=== PATIENT | female | born 1980 | race Two or more races ===

== ENCOUNTER 2023-05-02 11:21 | Outpatient (RCR) | payer OTHER, SELFPAY | END 2023-05-02 23:59 | disposition home or self-care (01) | LOC: RPT 11:21 | PROVIDERS: ATTENDING PHYSICIAN Family Medicine | DX: M54.42 Lumbago with sciatica, left side (principal); Z73.6 Limitation of activities due to disability | CPT/HCPCS: 97110; 97162; 97535 ==

== ENCOUNTER 2023-05-30 17:26 | Outpatient (RCR) | payer OTHER, SELFPAY | END 2023-05-30 23:59 | disposition home or self-care (01) | LOC: RPT 17:26 | PROVIDERS: ATTENDING PHYSICIAN Family Medicine | DX: M54.42 Lumbago with sciatica, left side (principal); Z73.6 Limitation of activities due to disability | CPT/HCPCS: 97010; 97110; 97112; 97535 ==

== ENCOUNTER 2023-06-13 18:00 | Outpatient (RCR) | payer OTHER, SELFPAY | END 2023-06-13 23:59 | disposition home or self-care (01) | LOC: RPT 18:00 | PROVIDERS: ATTENDING PHYSICIAN Family Medicine | DX: M54.42 Lumbago with sciatica, left side (principal); Z73.6 Limitation of activities due to disability | CPT/HCPCS: 97010; 97110; 97112 ==

== ENCOUNTER 2023-07-04 18:24 | Outpatient (RCR) | payer OTHER, SELFPAY | END 2023-07-31 07:56 | disposition home or self-care (01) | LOC: RPT 18:24 | PROVIDERS: ATTENDING PHYSICIAN Family Medicine | DX: M54.42 Lumbago with sciatica, left side (principal); Z73.6 Limitation of activities due to disability | CPT/HCPCS: 97010; 97110 ==

== ENCOUNTER → 2023-07-16 06:54 | Outpatient (REF) | payer OTHER, SELFPAY | LOC: PAVMRI 06:54 | PROVIDERS: ATTENDING PHYSICIAN Family Medicine | DX: M54.42 Lumbago with sciatica, left side (principal); M51.36 Other intervertebral disc degeneration, lumbar region | CPT/HCPCS: 72148 ==

== ENCOUNTER → 2024-09-21 09:00 | Outpatient (REF) | payer OTHER, SELFPAY | LOC: RCS 09:00 | PROVIDERS: ATTENDING PHYSICIAN Family Medicine | DX: R00.2 Palpitations (principal) | CPT/HCPCS: 93225; 93226 ==

== ENCOUNTER → 2024-10-20 09:32 | Outpatient (REF) | payer OTHER, SELFPAY | LOC: RAD 09:32 | PROVIDERS: ATTENDING PHYSICIAN Family Medicine | DX: M54.9 Dorsalgia, unspecified (principal); R31.29 Other microscopic hematuria | CPT/HCPCS: 76770 ==

== ENCOUNTER → 2024-12-04 11:03 | Outpatient (REF) | payer OTHER, SELFPAY | LOC: RCS 11:03 | PROVIDERS: ATTENDING PHYSICIAN Internal Medicine; FAMILY PHYSICIAN Family Medicine | DX: I47.10 Supraventricular tachycardia, unspecified (principal) | CPT/HCPCS: 93306 ==

== ENCOUNTER → 2024-12-29 13:22 | Outpatient (REF) | payer OTHER, SELFPAY | LOC: RCS 13:22 | PROVIDERS: ATTENDING PHYSICIAN Internal Medicine; FAMILY PHYSICIAN Family Medicine | DX: I47.10 Supraventricular tachycardia, unspecified (principal) | CPT/HCPCS: 93017 ==

== ENCOUNTER 2025-02-08 04:15 | Emergency (ER) | payer OTHER, SELFPAY ==
[2025-02-08 04:19] VITALS: BP 112/60
[2025-02-08 05:12] LABS: HCG, Urine Qualitative Screen Negative
[2025-02-08] MEDS: TORADOL 30 MG IV (05:46)
[2025-02-08] MEDS: ZOFRAN 4 MG IV (05:47)
[2025-02-08 05:49] LABS: Urine Character Clear (Clear)
[2025-02-08] MEDS: NSS 1000 IV (05:54)
[2025-02-08 05:59] LABS: Urine Squamous Cell 0-2 /LPF (Few)
[2025-02-08 06:00] LABS: Urine Red Blood Cell 0-2 /HPF (0-2); Urine White Cell 0-2 /HPF (0-5)
[2025-02-08 06:06] LABS: Hematocrit 40.5 % (37.0-47.0); Hemoglobin 13.5 g/dL (12.0-16.0); Mean Corp Hgb Conc. 33.3 g/dL (33.0-37.0); Mean Corpuscular Volume 89.6 fL (81.0-99.0); Nucleated Red Blood Cells % 0 %; Platelet Count 182 10^3/uL (130-400); Red Cell Dist. Width 12.5 % (11.5-14.5)
--- NOTE | 2025-02-08 06:07 | ED.GENMED ---
History of Present Illness
<Mirza Tolbert MD, Resident - Last Filed: 02/08/25 07:41>
General
Chief Complaint: Abdominal Pain
Source: patient
Time Seen by Provider: 02/08/25 04:53
History of Present Illness
History of Present Illness:
Patient is a 44-year-old, primarily Burmese-speaking female who is here due to sharp pain in her right lower quadrant that started about an hour ago after she went to e
No issues with urination, no blood observed in the urine, no history of kidney stones, no history of ovarian cysts, last menstrual period January 16
Describes the pain as 9/10, intermittent, sharp in nature, which has been decreasing in intensity and is now 7/10, nonradiating, no aggravating or relieving factors
Normal appetite and bowel habits
Denies any abdominal pain, diarrhea, chest pain, shortness of breath, sweating, tiredness, lightheadedness or syncopal episodes
Past History
<Mirza Tolbert MD, Resident - Last Filed: 02/08/25 07:41>
Past History
ED Past Medical History: None
ED Past Surgical History: None
Social History
Tobacco: Non-smoker
Alcohol: Occasional
Living: with family
Review of Systems
<Mirza Tolbert MD, Resident - Last Filed: 02/08/25 07:41>
Review of Systems
All Other Systems: ROS reviewed and negative except as documented in HPI and ROS
Phy Exam
<Mirza Tolbert MD, Resident - Last Filed: 02/08/25 07:41>
General Physical Exam
General Presentation: well appearing and mild distress
General age: appears stated age
General Skin: warm and dry
General Habitus: normal
Cardiovascular Exam
Cardiovascular Exam: regular rate/rhythm, no edema, no gallop, no murmur and normal peripheral pulses
Pulmonary Exam
Pulmonary Exam: lungs clear and no respiratory distress
Gastrointestinal Exam
Gastrointestinal Exam: normal bowel sounds, soft and tender (In right and left lower quadrant)
Neurological Exam
Neurological Exam: alert and oriented x3
Musculoskeletal Exam
Musculoskeletal Exam: full ROM
Skin Exam
Skin Exam: normal color and warm/dry
Psychiatric Exam
Psychiatric Exam: normal mood/affect
Course
<Mirza Tolbert MD, Resident - Last Filed: 02/08/25 07:41>
Orders/Labs/Results
Orders:
Orders
02/08/25 04:55
Urinalysis Reflex To Culture Urgent
Date Specimen was Collected: 02/08/25
Time Specimen was Collected: 04:52
Urine Microscopic Reflex Cult Urgent
02/08/25 04:58
Test Result ONCE
02/08/25 04:59
HCG, Urine Qualitative Screen Urgent
Date Specimen was Collected: 02/08/25
Time Specimen was Collected: 04:58
02/08/25 05:22
US Pelvis W Transvag Combined Urgent
Comment:
Reason For Exam: right lower quadrant pain
02/08/25 05:23
0.9% Sodium Chloride 1000 ml [Nss] 1,000 ml IV BOLUS
02/08/25 05:24
Ketorolac [Toradol] 30 mg IV NOW ONE
Ondansetron Injectable [Zofran] 4 mg IV NOW ONE
US Kidneys and US Bladder [US Renal With Bladder] Urgent
Comment:
Reason For Exam: rlq pain
02/08/25 05:41
Comprehensive Metabolic Panel Urgent
02/08/25 05:55
Complete Blood Count/With Diff Urgent
02/08/25 09:22
CT Abd/pelvis W Iv Cont Urgent
Comment:
Reason For Exam: RLQ pain
Abnormal Lab Results
1202/08/25 02/08/25
04:55 05:41 05:55
MPV 10.6 H fL
(7.4-10.4)
Creatinine 0.5 L mg/dL
(0.6-1.0)
ALT 43 H U/L
(0-35)
Ur Occult Blood Reflex 1+ A
(Negative)
Urine Albumin (Reflex) 1+ A
(Neg - Trace)
02/08/25 05:55
02/08/25 05:41
Vital Signs
Initial and Last Documented VS:
Initial Vital Signs
Temp Pulse Resp BP Pulse Ox
98.0 F 84 16 112/60 98
02/08/25 04:19 02/08/25 04:19 02/08/25 04:19 02/08/25 04:19 02/08/25 04:19
Last Documented Vital Signs
Temp Pulse Resp BP Pulse Ox
97.9 F 69 18 105/47 98
02/08/25 08:00 02/08/25 08:00 02/08/25 08:00 02/08/25 08:00 02/08/25 08:00
<Chante Davidson, DO - Last Filed: 02/08/25 06:48>
Orders/Labs/Results
Orders:
Orders
02/08/25 04:55
Urinalysis Reflex To Culture Urgent
Date Specimen was Collected: 02/08/25
Time Specimen was Collected: 04:52
Urine Microscopic Reflex Cult Urgent
02/08/25 04:58
Test Result ONCE
02/08/25 04:59
HCG, Urine Qualitative Screen Urgent
Date Specimen was Collected: 02/08/25
Time Specimen was Collected: 04:58
02/08/25 05:22
US Pelvis W Transvag Combined Urgent
Comment:
Reason For Exam: right lower quadrant pain
02/08/25 05:23
0.9% Sodium Chloride 1000 ml [Nss] 1,000 ml IV BOLUS
02/08/25 05:24
Ketorolac [Toradol] 30 mg IV NOW ONE
Ondansetron Injectable [Zofran] 4 mg IV NOW ONE
US Kidneys and US Bladder [US Renal With Bladder] Urgent
Comment:
Reason For Exam: rlq pain
02/08/25 05:41
Comprehensive Metabolic Panel Urgent
02/08/25 05:55
Complete Blood Count/With Diff Urgent
02/08/25 09:22
CT Abd/pelvis W Iv Cont Urgent
Comment:
Reason For Exam: RLQ pain
Abnormal Lab Results
02/08/25 02/08/25 02/08/25
04:55 05:41 05:55
MPV 10.6 H fL
(7.4-10.4)
Creatinine 0.5 L mg/dL
(0.6-1.0)
ALT 43 H U/L
(0-35)
Ur Occult Blood Reflex 1+ A
(Negative)
Urine Albumin (Reflex) 1+ A
(Neg - Trace)
02/08/25 05:55
02/08/25 05:41
Vital Signs
Initial and Last Documented VS:
Initial Vital Signs
Temp Pulse Resp BP Pulse Ox
98.0 F 84 16 112/60 98
02/08/25 04:19 02/08/25 04:19 02/08/25 04:19 02/08/25 04:19 02/08/25 04:19
Last Documented Vital Signs
Temp Pulse Resp BP Pulse Ox
97.9 F 69 18 105/47 98
02/08/25 08:00 02/08/25 08:00 02/08/25 08:00 02/08/25 08:00 02/08/25 08:00
<Giulia Cardenas MD - Last Filed: 02/08/25 10:54>
Orders/Labs/Results
Orders:
Orders
02/08/25 04:55
Urinalysis Reflex To Culture Urgent
Date Specimen was Collected: 02/08/25
Time Specimen was Collected: 04:52
Urine Microscopic Reflex Cult Urgent
02/08/25 04:58
Test Result ONCE
02/08/25 04:59
HCG, Urine Qualitative Screen Urgent
Date Specimen was Collected: 02/08/25
Time Specimen was Collected: 04:58
02/08/25 05:22
US Pelvis W Transvag Combined Urgent
Comment:
Reason For Exam: right lower quadrant pain
02/08/25 05:23
0.9% Sodium Chloride 1000 ml [Nss] 1,000 ml IV BOLUS
02/08/25 05:24
Ketorolac [Toradol] 30 mg IV NOW ONE
Ondansetron Injectable [Zofran] 4 mg IV NOW ONE
US Kidneys and US Bladder [US Renal With Bladder] Urgent
Comment:
Reason For Exam: rlq pain
02/08/25 05:41
Comprehensive Metabolic Panel Urgent
02/08/25 05:55
Complete Blood Count/With Diff Urgent
02/08/25 09:22
CT Abd/pelvis W Iv Cont Urgent
Comment:
Reason For Exam: RLQ pain
Abnormal Lab Results
02/08/25 02/08/25 02/08/25
04:55 05:41 05:55
MPV 10.6 H fL
(7.4-10.4)
Creatinine 0.5 L mg/dL
(0.6-1.0)
ALT 43 H U/L
(0-35)
Ur Occult Blood Reflex 1+ A
(Negative)
Urine Albumin (Reflex) 1+ A
(Neg - Trace)
02/08/25 05:55
02/08/25 05:41
Vital Signs
Initial and Last Documented VS:
Initial Vital Signs
Temp Pulse Resp BP Pulse Ox
98.0 F 84 16 112/60 98
02/08/25 04:19 02/08/25 04:19 02/08/25 04:19 02/08/25 04:19 02/08/25 04:19
Last Documented Vital Signs
Temp Pulse Resp BP Pulse Ox
97.9 F 69 18 105/47 98
02/08/25 08:00 02/08/25 08:00 02/08/25 08:00 02/08/25 08:00 02/08/25 08:00
<Mirza Tolbert MD, Resident - Last Filed: 02/08/25 07:41>
MDM/Problems Addressed
Differential Diagnosis Includes:
Renal colic
Ovarian torsion
Appendicitis
Muscle sprain
Ectopic
MDM/Problems Addressed:
test negative, urine analysis negative for any UTI, test negative
Follow abdominal ultrasound for kidney and bladder and also pelvic ultrasound for any ovarian cyst
CBC shows normal blood counts liver and kidney function
Given the normal CBC, appendicitis less likely
<Mirza Tolbert MD, Resident - Last Filed: 02/08/25 07:41>
*Pulse Oximetry
SaO2: 98
Oxygen Mode of Delivery: Room air
Patient hypoxic: no
*Critical Care Note
Total Time (30-74mins, 75-104mins- exclusive of procedures): Not Applicable
<Giulia Cardenas MD - Last Filed: 02/08/25 10:54>
*Radiology
Radiology exam reviewed: radiology read reviewed
<Giulia Cardenas MD - Last Filed: 02/08/25 10:54>
Update Note
Update Note:
9:20 AM patient's ultrasound of her bladder, kidneys and pelvis showed no acute abnormality. Patient is still having moderate pain that is in the right lower quadrant. Therefore, decision made to assess patient's right lower quadrant pain with CAT
scan.
10:54 AM patient appears well. CT report reviewed with patient
ED Attending Note
<Mirza Tolbert MD, Resident - Last Filed: 02/08/25 07:41>
-
Portions of this chart may have been created with voice recognition software.� Occasional wrong word or��sound alike� substitutions may have occurred due to the inherent limitations of voice recognition software.
<Chante Davidson DO - Last Filed: 02/08/25 06:48>
ED Attending Note
Patient seen and examined by attending physician: Yes
I performed a history and physical exam of patient and discussed management with resident, I reviewed resident's note and agree with documented findings and plan of care.: Yes
ED Attending Note:
This is a primarily [place]mese-speaking woman with no significant past medical history who presents with abrupt onset of moderate to severe right pelvic pain that began shortly after urinating and then going back to bed. No history of similar episodes
of pain. She mitts to nausea without vomiting. No dysuria urgency or hematuria. No back pain or flank pain. No fevers or chills. No chest pain or cough no shortness of breath.
Last menstrual period normal and on time January 16, 2025. She denies vaginal discharge nor bleeding.
44-year-old woman appears her stated age, awake and alert, pleasant, appears in no acute distress.
Abdomen is soft, nondistended, mild tenderness right pelvic region. No rebound or guarding. No palpable masses. No CVA tenderness.
Concern for ovarian cyst, ovarian torsion, other consideration is ureteric stone, UTI. Appendicitis is also consideration.
Thus far urinalysis is unremarkable. UCG is negative.
Will check labs and plan for renal ultrasound as well as pelvic ultrasound.
Will medicate for pain with Toradol and Zofran for nausea. Initiate IV fluids.
Discharge Plan
Departure
Patient Disposition: Home (Routine Discharge)
Date of Disposition: 02/08/25
Time of Disposition: 10:49
Patient with high blood pressure during this ER visit?: No
Condition: Good
Covid-19: Not Applicable
Discharge Problem:
Rupture of cyst of right ovary
Instructions: Ovarian cyst - ED (DC)
Prescriptions:
New
ketorolac 10 mg tablet
10 mg PO Q8H PRN (Reason: Pain) Qty: 8 0RF
Rx Instructions:
maximum total duration of 5 days from all oral, intranasal, or parenteral formulations
Referrals:
Orin Reed MD [Family Provider, Family Practice]
Activity Restrictions/Additional Instructions:
Your pain is likely due to a cyst that ruptured on your right ovary. Take Toradol every 8 hours as needed for pain. Do not combine the Toradol with any other pain medication such as Motrin, ibuprofen or Advil.
Interventions
Interventions:
*Risk Screen - Suicide Last Done: 02/08/25 04:19
*General Assessment Last Done: 02/08/25 04:19
*Neglect/Abuse Screening Last Done: 02/08/25 05:08
*ED COVID-19 Vaccine History Last Done: 02/08/25 05:08
*ED Influenza Vaccine History Last Done: 02/08/25 05:08
[facility] Fall Risk Assessment Tool Last Done: 02/08/25 07:48
CO-Tmtoog-[id number] Assessment Last Done: 02/08/25 07:00
Discharge Date and Time
Print Language: Burmese
[2025-02-08 06:13] LABS: ALT (SGPT) 43 U/L (0-35); AST (SGOT) 25 U/L (14-36); Albumin 4.1 g/dl (3.5-5.0); Alkaline Phosphatase 59 U/L (38-126); Blood Urea Nitrogen 13 mg/dl (7-17); Calcium 8.9 mg/dl (8.4-10.2); Carbon Dioxide 24 mmol/L (22-30); Chloride 106 mmol/L (98-107); Glucose 97 mg/dl (70-99); Potassium 4.2 mmol/L (3.5-5.1); Sodium 136 mmol/L (135-145); Total Protein 6.9 g/dl (6.3-8.2); eGFR > 60.00
[2025-02-08 07:46] VITALS: BMI 22.5
[2025-02-08 08:00] VITALS: BP 105/47
[2025-02-08 11:44] VITALS: BP 112/78
== END 2025-02-08 11:46 | disposition home or self-care (01) ==
LOC: EMR 04:15
PROVIDERS: EMERGENCY PHYSICIAN Emergency Medicine; FAMILY PHYSICIAN Family Medicine
DX: N83.201 Unspecified ovarian cyst, right side (principal)
CPT/HCPCS: 99284; 96374; 96375; 96361; 74177; 76770; 76830; 76856; 80053; 81003; 81015; 81025; 85025; Q9967